=== PATIENT | female | born 1955 | race American Indian/Alaskan Native ===

== ENCOUNTER 2017-01-14 20:44 | Emergency (ER) | payer MEDICARE ==
[2017-01-14 22:01] LABS: Basophils % (Auto) 1.5 % (0.0-1.8); Eosinophils % (Auto) 5.3 % (0.0-4.3); Hematocrit 36.9 % (30.3-42.9); Hemoglobin 12.5 gm/dl (10.1-14.3); Mean Corpuscular HGB Conc 34 % (30-34); Mean Corpuscular Hemoglobin 28 pg (28-32); Mean Corpuscular Volume 82 fl (79-97); Platelet Count 284 K/mm3 (140-440); Red Cell Distribution Width 14.6 % (13.2-15.2); White Blood Count 8.4 K/mm3 (4.5-11.0)
[2017-01-14] MEDS ORDERED: ASPIRIN PO ONE (22:19)
[2017-01-14 22:20] LABS: Alanine Aminotransferase 14 units/L (7-56); Albumin 4.2 g/dL (3.9-5); Albumin/Globulin Ratio 1.4 %; Alkaline Phosphatase 97 units/L (35-129); Anion Gap 21 mmol/L; BUN/Creatinine Ratio 14; Bilirubin,Total < 0.20 mg/dL (0.1-1.2); Blood Urea Nitrogen 13 mg/dL (7-17); Calcium 9.1 mg/dL (8.4-10.2); Carbon Dioxide 24 mmol/L (22-30); Chloride 100.2 mmol/L (98-107); Glucose 135 mg/dL (65-100); Sodium 142 mmol/L (137-145); Total Protein 7.3 g/dL (6.3-8.2)
--- NOTE | 2017-01-14 22:26 | Emergency Department Report ---
ED Chest Pain HPI - General Chief Complaint: Chest Pain Stated Complaint: CHEST DISCOMFORT Time Seen by Provider: 01/14/17 21:59 Source: patient Mode of arrival: Stretcher Limitations: No Limitations - History of Present Illness Initial Comments: 61 yo female who comes in today due to chest pain. She states that it started today around 7:30 pm. She describes the pain as pressure-like, 4/10, midsternal , with no radiation. Patient does admit to losing her son in July 2016 to medical illness. She is currently pain free. MD Complaint: chest pain -: This evening Onset: other (while speaking with her son ) Pain Location: substernal Pain Radiation: none Severity: mild Severity scale (0 -10): 3 Consistency: now resolved Improves With: rest Worsens With: other (stress/anxiety) Context: other (loss of her son-July 2016) Treatments Prior to Arrival: none Aspirin use within the Past 7 Days: (0) No - Related Data On Oral Contraceptives: No Allergies Allergy/AdvReac Type Severity Reaction Status Date / Time codeine Allergy Unknown Verified 01/14/17 21:36 morphine Allergy Unknown Verified 01/14/17 21:35 Heart Score - HEART Score History: Slightly suspicious EKG: Normal Age: 45-65 Risk factors: 1-2 risk factors Troponin: < normal limit (Normal) HEART Score: 2 ED Review of Systems ROS: Stated complaint: CHEST DISCOMFORT Other details as noted in HPI Constitutional: denies: chills, fever Eyes: denies: eye pain, eye discharge, vision change ENT: denies: ear pain, throat pain Respiratory: denies: cough, shortness of breath, wheezing Cardiovascular: as per HPI Endocrine: no symptoms reported Gastrointestinal: denies: abdominal pain, nausea, diarrhea Genitourinary: denies: urgency, dysuria, discharge Musculoskeletal: denies: back pain, joint swelling, arthralgia Skin: denies: rash, lesions Neurological: denies: headache, weakness, paresthesias Psychiatric: denies: anxiety, depression Hematological/Lymphatic: denies: easy bleeding, easy bruising ED Past Medical Hx - Past Medical History Previous Medical History?: Yes Hx Hypertension: Yes Hx GERD: Yes Hx Asthma: Yes Additional medical history: BRONCHITIS, IBS - Social History Smoking Status: Current Every Day Smoker Substance Use Type: None ED Physical Exam - General Limitations: No Limitations General appearance: alert, in no apparent distress - Head Head exam: Present: atraumatic, normocephalic - Eye Eye exam: Present: normal appearance - ENT ENT exam: Present: mucous membranes moist - Neck Neck exam: Present: normal inspection - Respiratory Respiratory exam: Present: normal lung sounds bilaterally. Absent: respiratory distress - Cardiovascular Cardiovascular Exam: Present: regular rate, normal rhythm. Absent: systolic murmur, diastolic murmur, rubs, gallop - GI/Abdominal GI/Abdominal exam: Present: soft, normal bowel sounds - Extremities Exam Extremities exam: Present: normal inspection - Back Exam Back exam: Present: normal inspection - Neurological Exam Neurological exam: Present: alert, oriented X3 - Psychiatric Psychiatric exam: Present: normal affect, normal mood - Skin Skin exam: Present: warm, dry, intact, normal color. Absent: rash ED Course Vital Signs 01/14/17 01/14/17 01/14/17 17:26 17:30 17:46 Temperature Pulse Rate 89 88 67 Respiratory 15 17 16 Rate Blood Pressure 139/74 139/74 Blood Pressure [Right] O2 Sat by Pulse 100 96 100 Oximetry 01/14/17 01/14/17 01/14/17 18:00 18:16 18:30 Temperature Pulse Rate 82 77 64 Respiratory 10 L 16 20 Rate Blood Pressure 139/74 113/55 113/55 Blood Pressure [Right] O2 Sat by Pulse 97 100 100 Oximetry 01/14/17 01/14/17 01/14/17 18:46 19:00 19:16 Temperature Pulse Rate 65 63 63 Respiratory 17 18 17 Rate Blood Pressure 113/55 113/55 113/55 Blood Pressure [Right] O2 Sat by Pulse 100 100 100 Oximetry 01/14/17 01/14/17 01/14/17 19:30 20:50 21:00 Temperature Pulse Rate 63 86 93 H Respiratory 10 L 18 Rate Blood Pressure 113/55 113/55 144/84 Blood Pressure [Right] O2 Sat by Pulse 100 Oximetry 01/14/17 01/14/17 01/14/17 21:16 21:30 21:31 Temperature 98 F Pulse Rate 95 H 88 88 Respiratory 18 19 Rate Blood Pressure 144/84 113/55 Blood Pressure 144/84 [Right] O2 Sat by Pulse 98 Oximetry 01/14/17 01/14/17 01/14/17 21:46 22:00 22:16 Temperature Pulse Rate 91 H 91 H 93 H Respiratory 14 17 13 Rate Blood Pressure 144/84 144/84 144/84 Blood Pressure [Right] O2 Sat by Pulse Oximetry 01/14/17 01/14/17 01/14/17 22:30 22:46 23:00 Temperature Pulse Rate 92 H 86 92 H Respiratory 16 14 14 Rate Blood Pressure 144/84 144/84 144/84 Blood Pressure [Right] O2 Sat by Pulse Oximetry 01/14/17 01/14/17 01/14/17 23:16 23:30 23:46 Temperature Pulse Rate 86 81 88 Respiratory 14 13 15 Rate Blood Pressure 144/84 144/84 144/84 Blood Pressure [Right] O2 Sat by Pulse Oximetry 01/15/17 01/15/17 01/15/17 00:00 00:09 00:16 Temperature 98.2 F Pulse Rate 77 80 92 H Respiratory 10 L 14 21 Rate Blood Pressure 133/84 133/84 Blood Pressure 127/80 [Right] O2 Sat by Pulse 98 Oximetry 01/15/17 01/15/17 01/15/17 00:30 00:46 01:00 Temperature Pulse Rate 82 87 84 Respiratory 16 19 16 Rate Blood Pressure 133/84 133/84 133/84 Blood Pressure [Right] O2 Sat by Pulse 92 92 94 Oximetry 01/15/17 01/15/17 01/15/17 01:16 01:30 01:48 Temperature 98.2 F Pulse Rate 91 H 84 Respiratory 18 16 Rate Blood Pressure 133/84 133/84 Blood Pressure 131/78 [Right] O2 Sat by Pulse 89 Oximetry - Reevaluation(s) Reevaluation #1: 01/15/17 01:26 Patient states that she feels much better. Will check another set of enzymes and an ekg. Home if unremarkable. VON score - Von Score Age > 65: (0) No Aspirin use within the Past 7 Days: (0) No 3 or more CAD Risk Factors: (1) Yes 2 or more Angina events in past 24 hrs: (0) No Known CAD with more than 50% Stenosis: (0) No Elevated Cardiac Markers: (0) No ST Deviation Greater than 0.5mm: (0) No VON Score: 1 ED Medical Decision Making - Lab Data Result diagrams: 01/14/17 22:41 01/14/17 21:43 Critical care attestation.: If time is entered above; I have spent that time in minutes in the direct care of this critically ill patient, excluding procedure time. ED Disposition Clinical Impression: Chest pain, Anxiety, Stress Disposition: - TO HOME OR SELFCARE Is pt being admited?: No Does the pt Need Aspirin: No Condition: Stable Instructions: Chest Pain (ED) Additional Instructions: Please follow up with your provider on discharge. Return to the ED for worsening chest pain, shortness of breath, nausea, vomiting, diaphoresis, fever , or chills. Referrals: PRIMARY CARE, [Primary Care Provider] - 3-5 Days Time of Disposition: 01:57
[2017-01-14 22:51] LABS: Hematocrit 36.3 % (30.3-42.9); Hemoglobin 12.5 gm/dl (10.1-14.3); Mean Corpuscular HGB Conc 34 % (30-34); Mean Corpuscular Hemoglobin 28 pg (28-32); Mean Corpuscular Volume 82 fl (79-97); Platelet Count 264 K/mm3 (140-440); Red Blood Count 4.41 M/mm3 (3.65-5.03); Red Cell Distribution Width 14.4 % (13.2-15.2); White Blood Count 8.4 K/mm3 (4.5-11.0)
[2017-01-14] MEDS ORDERED: K-DUR PO ONE (23:04)
--- NOTE | 2017-01-14 23:29 | XRay Report ---
FINAL REPORT PROCEDURE: XR CHEST 1V AP TECHNIQUE: Chest radiograph anteroposterior view. CPT 83405 HISTORY: Chest pain. COMPARISON: No prior studies are available for comparison. FINDINGS: Heart: Normal. Mediastinum/Vessels: Aortic tortuosity. Mild central vascular congestion Lungs/Pleural space: Normal. Bony thorax: No acute osseous abnormality. Life support devices: None. IMPRESSION: Aortic tortuosity. Mild central vascular congestion without radiographic evidence of overt pulmonary edema.
[2017-01-15 02:53] VITALS: BP 122/83
== END 2017-01-15 02:51 | disposition home or self-care (01) ==
LOC: ED 20:44
DX: F41.9 Anxiety disorder, unspecified (principal); I10 Essential (primary) hypertension; K21.9 Gastro-esophageal reflux disease without esophagitis; F17.200 Nicotine dependence, unspecified, uncomplicated; Z88.6 Allergy status to analgesic agent
CPT/HCPCS: 36415; 71010; 80048; 80053; 84484; 85025; 85027; 93005; 93010; 99285

== ENCOUNTER 2018-11-12 13:48 | Inpatient (IN) | payer MEDICARE ==
--- NOTE | 2018-11-12 14:26 | Cat Scan Report ---
CT BRAIN: 11/12/2018 INDICATION / CLINICAL INFORMATION: neuro deficits <6hrs or sx present upon awakening. COMPARISON: None available. FINDINGS: BRAIN/INTRACRANIAL STRUCTURES: Unenhanced CT images of the brain were obtained. There is no definite evidence of acute abnormality. Ventricles and sulci are normal in size and shape. A prominent cavum septum lucidum is noted. There is some hypoattenuation present on these images in the central raghav. I suspect this is artifact ual based on beam hardening artifact arising from the temporal bones in this location. Underlying hyp odensity or ischemic change in the raghav cannot be excluded. There is no evidence of hemorrhage or mass. Dystrophic calcification is noted in the right side of th e quadrigeminal plate. There are no abnormal extra-axial fluid collections. EXTRACRANIAL STRUCTURES: Unremarkable. IMPRESSION: 1. No definite evidence of acute abnormality. 2. [place] hypodensity which may be artifactual. Findings to SHUN VALENTIN at [address] scans at this location are performed using dose reduction to ALARA by means of automated expos ure control. Signer Name: Silvestre Bridges MD Signed: 11/12/2018 2:22 PM Workstation Name: [id number]
[2018-11-12] MEDS ORDERED: ALTEPLASE 100 MG INJ KIT ONE (14:28)
--- NOTE | 2018-11-12 14:28 | Emergency Department Report ---
ED Neuro Deficit HPI - General Chief Complaint: Neuro Symptoms/Deficit Stated Complaint: FEELING ILL Time Seen by Provider: 11/12/18 14:26 Source: patient, EMS Mode of arrival: Stretcher Limitations: No Limitations - History of Present Illness Initial Comments: Patient is 63 years old female with history of hypertension and asthma. Patient brought to the emergency room via EMS for evaluation of sudden onset of slurred speech. Patient symptoms started exactly at 01:25 PM. Upon arrival to the ER patient has a minor left facial droop and left limb ataxia. Stroke protocol initiated immediately and stroke telemetry consulted. Patient's CT brain show a hypodense area in the raghav. Dr. Garth Dunaway examining the patient through video conference and indicated that patient is a TPA candidate. TPA given. -: Sudden Location: speech, left face, left arm, left leg Presenting Symptoms: Present: Weak/Paralyzed One Side, Facial Droop/Numbness, Unable to Speak Clearly History of same: No Place: home Associated Symptoms: denies other symptoms - Related Data Allergies/Adverse Reactions: Allergies Allergy/AdvReac Type Severity Reaction Status Date / Time codeine Allergy Unknown Verified 01/14/17 21:36 morphine Allergy Unknown Verified 01/14/17 21:35 ED Review of Systems ROS: Stated complaint: FEELING ILL Other details as noted in HPI Comment: All other systems reviewed and negative Constitutional: denies: chills, fever Respiratory: denies: orthopnea, shortness of breath Cardiovascular: denies: chest pain, palpitations Gastrointestinal: denies: abdominal pain, nausea, vomiting Musculoskeletal: denies: back pain Neurological: denies: headache, weakness, numbness, paresthesias, confusion, abnormal gait ED Past Medical Hx - Past Medical History Previous Medical History?: Yes Hx Hypertension: Yes Hx GERD: Yes Hx Asthma: Yes Additional medical history: BRONCHITIS, IBS - Social History Smoking Status: Current Every Day Smoker ED Neuro Physical Exam - General Limitations: No Limitations General appearance: alert, in no apparent distress Suspected Stroke: Yes - Head Head exam: Present: atraumatic, normocephalic, normal inspection - Eye Eye exam: Present: normal appearance, PERRL - ENT ENT exam: Present: normal exam, normal orophraynx, mucous membranes moist - Neck Neck exam: Present: normal inspection, full ROM. Absent: tenderness, menin gismus, lymphadenopathy, thyromegaly - Respiratory Respiratory exam: Present: normal lung sounds bilaterally - Cardiovascular Cardiovascular Exam: Present: regular rate, normal rhythm, normal heart sounds - GI/Abdominal GI/Abdominal exam: Present: soft, normal bowel sounds. Absent: distended, tenderness, guarding, rebound, rigid, organomegaly, mass, bruit, pulsatile mass, hernia - Extremities Exam Extremities exam: Present: normal inspection, full ROM, normal capillary refill. Absent: pedal edema, calf tenderness - Back Exam Back exam: Present: normal inspection, full ROM. Absent: CVA tenderness (R), CVA tenderness (L), muscle spasm, vertebral tenderness - Neurological Exam Neurological exam: Present: alert, oriented X3 - NIHSS Assessment Interval: Baseline 1a. Level of Consciousness: alert/keenly responsive 1b. LOC Questions: answers both correctly 1c. LOC Commands: performs tasks correctly 2. Best Gaze: normal 3. Visual: no visual loss 4. Facial Palsy: minor paralysis 5b. Motor Arm Right: no drift 5a. Motor Arm Left: no drift 6a. Motor Leg Left: no drift 6b. Motor Leg Right: no drift 7. Limb Ataxia: present 1 limb 8. Sensory: normal 9. Best Language: mild/moderate aphasia 10. Dysarthria: mild/moderate dysarthria 11. Extinction/Inattention: no abnormality Total Score: 4 Stroke Severity: Minor Stroke - Psychiatric Psychiatric exam: Present: normal mood - Skin Skin exam: Present: warm, intact, normal color ED Course Vital Signs 11/12/18 11/12/18 11/12/18 13:55 14:36 15:14 Temperature 98.7 F Pulse Rate 64 72 62 Pulse Rate [ Left Arm] Respiratory 16 Rate Respiratory Rate [Left Arm] Blood Pressure 144/86 158/86 162/88 Blood Pressure [Left Arm] O2 Sat by Pulse 98 Oximetry O2 Sat by Pulse Oximetry [Left Arm] 11/12/18 11/12/18 15:20 15:35 Temperature Pulse Rate Pulse Rate [ 78 86 Left Arm] Respiratory Rate Respiratory 21 18 Rate [Left Arm] Blood Pressure Blood Pressure 156/80 160/89 [Left Arm] O2 Sat by Pulse Oximetry O2 Sat by Pulse 99 100 Oximetry [Left Arm] - Lab Data Result diagrams: 11/12/18 14:11 11/12/18 14:11 Lab Results 11/12/18 11/12/18 11/12/18 Range/Units 14:11 14:11 14:11 WBC 6.0 (4.5-11.0) K/mm3 RBC 4.71 (3.65-5.03) M/mm3 Hgb 13.0 (10.1-14.3) gm/dl Hct 38.4 (30.3-42.9) % MCV 82 (79-97) fl MCH 28 (28-32) pg MCHC 34 (30-34) % RDW 14.5 (13.2-15.2) % Plt Count 277 (140-440) K/mm3 Lymph % (Auto) 31.7 (13.4-35.0) % [place] % (Auto) 6.6 (0.0-7.3) % Eos % (Auto) 2.7 (0.0-4.3) % Baso % (Auto) 1.2 (0.0-1.8) % Lymph # 1.9 (1.2-5.4) K/mm3 [place] # 0.4 (0.0-0.8) K/mm3 Eos # 0.2 (0.0-0.4) K/mm3 Baso # 0.1 (0.0-0.1) K/mm3 Seg Neutrophils % 57.8 (40.0-70.0) % Seg Neutrophils # 3.5 (1.8-7.7) K/mm3 PT 12.8 (12.2-14.9) Sec. INR 0.99 (0.87-1.13) APTT 27.6 (24.2-36.6) Sec. Thrombin Time (15.1-19.6) Sec. Sodium 141 (137-145) mmol/L Potassium 3.3 L (3.6-5.0) mmol/L Chloride 101.9 (98-107) mmol/L Carbon Dioxide 23 (22-30) mmol/L Anion Gap 19 mmol/L BUN 14 (7-17) mg/dL Creatinine 0.9 (0.7-1.2) mg/dL Estimated GFR > 60 ml/min BUN/Creatinine Ratio 16 % Glucose 94 (65-100) mg/dL POC Glucose (70-105) Calcium 9.3 (8.4-10.2) mg/dL Troponin T < 0.010 (0.00-0.029) ng/mL 11/12/18 11/12/18 Range/Units 14:11 14:39 WBC (4.5-11.0) K/mm3 RBC (3.65-5.03) M/mm3 Hgb (10.1-14.3) gm/dl Hct (30.3-42.9) % MCV (79-97) fl MCH (28-32) pg MCHC (30-34) % RDW (13.2-15.2) % Plt Count (140-440) K/mm3 Lymph % (Auto) (13.4-35.0) % [place] % (Auto) (0.0-7.3) % Eos % (Auto) (0.0-4.3) % Baso % (Auto) (0.0-1.8) % Lymph # (1.2-5.4) K/mm3 [place] # (0.0-0.8) K/mm3 Eos # (0.0-0.4) K/mm3 Baso # (0.0-0.1) K/mm3 Seg Neutrophils % (40.0-70.0) % Seg Neutrophils # (1.8-7.7) K/mm3 PT (12.2-14.9) Sec. INR (0.87-1.13) APTT (24.2-36.6) Sec. Thrombin Time 16.5 (15.1-19.6) Sec. Sodium (137-145) mmol/L Potassium (3.6-5.0) mmol/L Chloride (98-107) mmol/L Carbon Dioxide (22-30) mmol/L Anion Gap mmol/L BUN (7-17) mg/dL Creatinine (0.7-1.2) mg/dL Estimated GFR ml/min BUN/Creatinine Ratio % Glucose (65-100) mg/dL POC Glucose 88 (70-105) Calcium (8.4-10.2) mg/dL Troponin T (0.00-0.029) ng/mL - EKG Data -: EKG Interpreted by Me - Radiology Data Radiology results: report reviewed - Medical Decision Making Patient is 63 years old female with history of hypertension and asthma. Patient brought to the emergency room via EMS for evaluation of sudden onset of slurred speech. Patient symptoms started exactly at 01:25 PM. Upon arrival to the ER patient has a minor left facial droop and left limb ataxia. Stroke protocol initiated immediately and stroke telemetry consulted. Patient's CT brain show a hypodense area in the raghav. Dr. Garth Dunaway examining the patient through video conference and indicated that patient is a TPA candidate. TPA given. No complications noted. Scuffs the patient was Dr. Alvares, he had great admitted the patient to medical service. Critical Care Time: Yes Critical care time in (mins) excluding proc time.: 30 Critical care attestation.: If time is entered above; I have spent that time in minutes in the direct care of this critically ill patient, excluding procedure time. ED Disposition Clinical Impression: CVA (cerebral vascular accident) Disposition: 09 OP ADMIT IP TO THIS HOSP Is pt being admited?: Yes Condition: Stable
[2018-11-12 14:32] LABS: Basophils # (Auto) 0.1 K/mm3 (0.0-0.1); Basophils % (Auto) 1.2 % (0.0-1.8); Eosinophils # (Auto) 0.2 K/mm3 (0.0-0.4); Eosinophils % (Auto) 2.7 % (0.0-4.3); Hematocrit 38.4 % (30.3-42.9); Lymphocytes # (Auto) 1.9 K/mm3 (1.2-5.4); Lymphocytes % (Auto) 31.7 % (13.4-35.0); Mean Corpuscular HGB Conc 34 % (30-34); Mean Corpuscular Volume 82 fl (79-97); Monocytes # (Auto) 0.4 K/mm3 (0.0-0.8); Monocytes % (Auto) 6.6 % (0.0-7.3); Platelet Count 277 K/mm3 (140-440); Red Blood Count 4.71 M/mm3 (3.65-5.03); Red Cell Distribution Width 14.5 % (13.2-15.2)
[2018-11-12] MEDS ORDERED: ALTEPLASE 100 MG INJ KIT IV ONE ×2 (14:32)
[2018-11-12] MEDS ORDERED: SODIUM CHLORIDE 0.9% 50 ML IVPB IV ONE (14:32)
[2018-11-12 14:37] LABS: INR 0.99 (0.87-1.13)
[2018-11-12 14:38] LABS: Partial Thromboplastin Time 27.6 Sec. (24.2-36.6)
[2018-11-12 14:42] LABS: BUN/Creatinine Ratio 16; Blood Urea Nitrogen 14 mg/dL (7-17); Calcium 9.3 mg/dL (8.4-10.2); Hemolysis Index 1
--- NOTE | 2018-11-12 14:45 | Emergency Department Report ---
ED Neuro Deficit HPI - General Chief Complaint: Neuro Symptoms/Deficit Stated Complaint: FEELING ILL Time Seen by Provider: 11/12/18 14:26 Source: patient, EMS Mode of arrival: Stretcher Limitations: No Limitations - History of Present Illness Initial Comments: [facility] TeleNeurology Consult Services Impression: Pt was last normal close to ATAXIA on left side - 2 after walking. [place] stroke noted on CT no bleeding Stroke Alteplase is indicated. No absolute contraindications are present. The patient is ataxic to her left side, suspect posterior circulation stroke - ----*Presentation is suggestive of Large Vessel Occlusive Disease. Advanced imaging recommended. ---- Metrics: Door time: 1:48 pm [facility] contacted: 2:09 pm [facility] at bedside:2:15 pm Last known well (LKW): 1:30 pm NIHSS assessment time (start of exam): 2:15 pm Verbal tpa order: 2:20 pm Blood pressure prior to bolus: 140/66 Blood Glucose: 88 Needle time: 2:36 pm Verbal Consent to tPA: I have explained to the patient/family/guardian the natu re of the patients condition, the use of tPA fibrinolytic agent, and the benefits to be reasonably expected compared with alternative approaches. I have discussed the likelihood of major risks or complications of this procedure including (if applicable) but not limited to loss of limb function, brain damage, paralysis, hemorrhage, infection, complications from transfusion of blood components, drug reactions, blood clots and loss of life. I have also indicated that with any procedure there is always the possibility of an unexpected complication. I have explained the risks which include: 1. , Stroke or permanent neurologic injury (paralysis, coma, etc) 2. Worsening of stroke symptoms from swelling or bleeding in the brain 3. Bleeding in other parts of the body 4. Need for blood transfusions to replace blood or clotting factors 5. Allergic reaction to medications 6. Other unexpected complications All questions were answered and the patient/family/guardian express understanding of the treatment plan and consent to the procedure. Our recommendations are outlined below. We will be seeing the patient back in follow up as noted. Recommendations: IV tPA dose = 9 mg, 81 mg Routine post tPA monitoring including neuro checks and blood pressure control during/after treatment Monitor blood pressure Check blood pressure and NIHSS every 15 min for 2 h, then every 30 min for 6 h, and finally every hour for 16 h Manage Blood Pressure per post tPA protocol. Admission to ICU CT brain 24 hours post tPA NPO until swallowing screen performed and passed No antiplatelet agents or anticoagulants (including heparin for DVT prophylaxis) in first 24 hours No Bermudez catheter, nasogastric tube, arterial catheter or central venous catheter for 24 hr, unless absolutely necessary Telemetry Inpatient Neurology NIHSS score:2 = ataxia to the left side. 1A: Level of Consciousness - Requires repeated stimulation to arouse 0 1B: Ask Month and Age - 0 Questions Right 0 1C: 'Blink Eyes' & 'Squeeze Hands' - Performs 0 Tasks 0 2: Test Horizontal Extraocular Movements - Partial Gaze Palsy: Corrects with Oculocephalic Reflex 0 3: Test Visual Irvin - No Visual Loss 0 4: Test Facial Palsy - Normal symmetry 0 5A: Test Left Arm Motor Drift - Some Effort Against [place] 0 5B: Test Right Arm Motor Drift - Some Effort Against Gravity0 6A: Test Left Leg Motor Drift - Some Effort Against [place] 0 6B: Test Right Leg Motor Drift - Some Effort Against [place] 0 7: Test Limb Ataxia - Ataxia in 2 Limbs 2 8: Test Sensation - Complete Loss: Cannot Sense Being Touched At All 0 9: Test Language/Aphasia- Severe Aphasia: Fragmentary Expression, Inference Needed, Cannot Identify Materials 0 10: Test Dysarthria - Mute/Anarthric 0 11: Test Extinction/Inattention - Extinction to bilateral simultaneous stimulation 0 onsultation Stroke evaluation as per inpatient neurology recommendations Discussed with ED MD CC History of Present Illness Patient is a Diagnostics Exam NIHSS score: Medical Decision Making: - Extensive number of diagnosis or management options are considered above. - Extensive amount of complex data reviewed. - High risk of complication and/or morbidity or mortality are associated with differential diagnostic considerations above. - There may be Uncertain outcome and increased probability of prolonged functional impairment or high probability of severe prolonged functional impairment associated with some of these differential diagnosis. Medical Data Reviewed: 1.Data reviewed include clinical labs, radiology, Medical Tests; 2.Tests results discussed w/performing or interpreting physician; 3.Obtaining/reviewing old medical records; 4.Obtaining case history from another source; 5.Independent review of image, tracing or specimen. Patient was informed the Neurology Consult would happen via TeleHealth consult by way of interactive audio and video telecommunications and consented to receiving care in this manner. Location: speech, left face, left arm, left leg History of same: No Place: home - Related Data Allergies/Adverse Reactions: Allergies Allergy/AdvReac Type Severity Reaction Status Date / Time codeine Allergy Unknown Verified 01/14/17 21:36 morphine Allergy Unknown Verified 01/14/17 21:35 ED Review of Systems ROS: Stated complaint: FEELING ILL Other details as noted in HPI Constitutional: denies: chills, fever Respiratory: denies: orthopnea, shortness of breath Cardiovascular: denies: chest pain, palpitations Gastrointestinal: denies: abdominal pain, nausea, vomiting Musculoskeletal: denies: back pain Neurological: denies: headache, weakness, numbness, paresthesias, confusion, abnormal gait ED Past Medical Hx - Past Medical History Previous Medical History?: Yes Hx Hypertension: Yes Hx GERD: Yes Hx Asthma: Yes Additional medical history: BRONCHITIS, IBS - Social History Smoking Status: Current Every Day Smoker ED Neuro Physical Exam - General Limitations: No Limitations General appearance: alert, in no apparent distress ED Course Vital Signs 11/12/18 11/12/18 13:55 14:36 Temperature 98.7 F Pulse Rate 64 72 Respiratory 16 Rate Blood Pressure 144/86 158/86 O2 Sat by Pulse 98 Oximetry - Lab Data Result diagrams: 11/12/18 14:11 11/12/18 14:11 Lab Results 11/12/18 11/12/18 11/12/18 Range/Units 14:11 14:11 14:11 WBC 6.0 (4.5-11.0) K/mm3 RBC 4.71 (3.65-5.03) M/mm3 Hgb 13.0 (10.1-14.3) gm/dl Hct 38.4 (30.3-42.9) % MCV 82 (79-97) fl MCH 28 (28-32) pg MCHC 34 (30-34) % RDW 14.5 (13.2-15.2) % Plt Count 277 (140-440) K/mm3 Lymph % (Auto) 31.7 (13.4-35.0) % [place] % (Auto) 6.6 (0.0-7.3) % Eos % (Auto) 2.7 (0.0-4.3) % Baso % (Auto) 1.2 (0.0-1.8) % Lymph # 1.9 (1.2-5.4) K/mm3 [place] # 0.4 (0.0-0.8) K/mm3 Eos # 0.2 (0.0-0.4) K/mm3 Baso # 0.1 (0.0-0.1) K/mm3 Seg Neutrophils % 57.8 (40.0-70.0) % Seg Neutrophils # 3.5 (1.8-7.7) K/mm3 PT 12.8 (12.2-14.9) Sec. INR 0.99 (0.87-1.13) APTT 27.6 (24.2-36.6) Sec. Thrombin Time (15.1-19.6) Sec. Sodium 141 (137-145) mmol/L Potassium 3.3 L (3.6-5.0) mmol/L Chloride 101.9 (98-107) mmol/L Carbon Dioxide 23 (22-30) mmol/L Anion Gap 19 mmol/L BUN 14 (7-17) mg/dL Creatinine 0.9 (0.7-1.2) mg/dL Estimated GFR > 60 ml/min BUN/Creatinine Ratio 16 % Glucose 94 (65-100) mg/dL POC Glucose (70-105) Calcium 9.3 (8.4-10.2) mg/dL 11/12/18 11/12/18 Range/Units 14:11 14:39 WBC (4.5-11.0) K/mm3 RBC (3.65-5.03) M/mm3 Hgb (10.1-14.3) gm/dl Hct (30.3-42.9) % MCV (79-97) fl MCH (28-32) pg MCHC (30-34) % RDW (13.2-15.2) % Plt Count (140-440) K/mm3 Lymph % (Auto) (13.4-35.0) % [place] % (Auto) (0.0-7.3) % Eos % (Auto) (0.0-4.3) % Baso % (Auto) (0.0-1.8) % Lymph # (1.2-5.4) K/mm3 [place] # (0.0-0.8) K/mm3 Eos # (0.0-0.4) K/mm3 Baso # (0.0-0.1) K/mm3 Seg Neutrophils % (40.0-70.0) % Seg Neutrophils # (1.8-7.7) K/mm3 PT (12.2-14.9) Sec. INR (0.87-1.13) APTT (24.2-36.6) Sec. Thrombin Time 16.5 (15.1-19.6) Sec. Sodium (137-145) mmol/L Potassium (3.6-5.0) mmol/L Chloride (98-107) mmol/L Carbon Dioxide (22-30) mmol/L Anion Gap mmol/L BUN (7-17) mg/dL Creatinine (0.7-1.2) mg/dL Estimated GFR ml/min BUN/Creatinine Ratio % Glucose (65-100) mg/dL POC Glucose 88 (70-105) Calcium (8.4-10.2) mg/dL Critical care attestation.: If time is entered above; I have spent that time in minutes in the direct care of this critically ill patient, excluding procedure time. ED Disposition Condition: Stable
[2018-11-12] MEDS ORDERED: hydrALAZINE 20 MG/1 ML INJ IV ONE (15:06)
[2018-11-12] MEDS ORDERED: diphenhydrAMINE 50 MG/ML VIAL ONE (15:41)
[2018-11-12] MEDS ORDERED: diphenhydrAMINE 50 MG/ML VIAL IV ONE (15:42)
--- NOTE | 2018-11-12 16:14 | Cat Scan Report ---
NECK CT ANGIOGRAM 11/12/2018 HISTORY: Stroke FINDINGS: Contrast-enhanced CT angiographic images of the neck were obtained. In addition to the axia l images, sagittal and coronal reformatted images were obtained. In addition, 3 plane MIP reconstruct ions were produced. Patient motion artifact is present, which degrades the resolution of these images. There is no gross evidence of carotid location stenosis or abnormality. The motion artifact is particularly prominent o n the right side in the level of the proximal internal carotid artery. Vertebral artery contours are unremarkable. Visualized portions of the aortic arch are unremarkable. IMPRESSION: Motion artifact. Taking this into account, there is no gross evidence of carotid bifurcat ion stenosis or abnormality. NASCET like criteria were used in this evaluation. All CT scans at this location are performed using dose reduction to ALARA by means of automated expos ure control. Signer Name: Silvestre Bridges MD Signed: 11/12/2018 4:10 PM Workstation Name: [id number]
--- NOTE | 2018-11-12 16:17 | Cat Scan Report ---
HEAD CT ANGIOGRAM 11/12/2018 HISTORY: Speech disturbance FINDINGS: Contrast-enhanced CT angiographic images of the intracranial circulation were obtained. In addition to the axial images, sagittal and coronal reformatted images were obtained. In addition, 3 p james MIP reconstructions were produced. There is no evidence of acute abnormality. There is a normal appearance to the anterior and posterior circulation vessels at the level of the sk ull base and [place]. IMPRESSION: No significant abnormality. All CT scans at this location are performed using dose reduction to ALARA by means of automated expos ure control. Signer Name: Silvestre Bridges MD Signed: 11/12/2018 4:13 PM Workstation Name: [id number]
--- NOTE | 2018-11-12 16:26 | History and Physical Report ---
History of Present Illness Chief complaint: confused History of present illness: 63 YO Female with HTN, GERD, Asthma, IBS, Nicotine Dependence, Obesity presents to ED for evaluation. Pt is confused, lethargic and unable to provide detained history at time of exam. Pt history provided by , and family who are at bedside during exam and interview. As per family, the patient was in her usual state of health and experienced a sudden onset of confusion, Facial droop, and slurred speech as well as inability to move he left upper and lower extremities at 1325 hrs. EMS notified, and uopn arrival was found to have a neurologic deficit. A code stroke was called and the patient transported to [facility]. Pt seen and evaluated in ED an found to have symptoms consistent with CVA, and Encephalopathy. Teleneurology consulted and patient was treated with TPA. Pt subsequently admitted to ICU and terated IAW CVA protocol. Neurology consulted in ED. Advanced care planning conducted. Pt family acknowledges understanding and agreement with care plan. No prior admission for review. All listed medication reconciled at time of admission. Past History Past Medical History: GERD, hypertension, other (IBS, Obesity) Past Surgical History: No surgical history, Other (reviewed) Social history: , lives with family, smoking. denies: alcohol abuse, prescription drug abuse Family history: diabetes, hypertension Medications and Allergies Allergies Allergy/AdvReac Type Severity Reaction Status Date / Time codeine Allergy Unknown Verified 01/14/17 21:36 morphine Allergy Unknown Verified 01/14/17 21:35 Review of Systems ROS unobtainable: due to mental status Exam - Constitutional Vitals: Temp Pulse Resp BP Pulse Ox 98.7 F 86 18 160/89 100 11/12/18 13:55 11/12/18 15:35 11/12/18 15:35 11/12/18 15:35 11/12/18 15:35 General appearance: Present: mild distress, obese - EENT Eyes: Present: miosis ENT: hearing decreased - Neck Neck: Present: supple, normal ROM - Respiratory Respiratory effort: normal Respiratory: bilateral: CTA - Cardiovascular Heart Sounds: Present: S1 & S2. Absent: rub, click - Extremities Extremities: pulses symmetrical, No edema Peripheral Pulses: within normal limits - Abdominal General gastrointestinal: Present: soft, non-tender, non-distended, normal bowel sounds Female genitourinary: Present: normal - Integumentary Integumentary: Present: clear, warm, dry - Musculoskeletal Musculoskeletal: generalized weakness - Psychiatric Psychiatric: no appropriate mood/affect, no intact judgment & insight, no memory intact - Neurologic Neurologic: CNII-XII intact, no focal deficits, moves all extremities, no gait normal Results - Labs CBC & Chem 7: 11/12/18 14:11 11/12/18 14:11 Labs: Abnormal lab results 11/12/18 Range/Units 14:11 Potassium 3.3 L (3.6-5.0) mmol/L Assessment and Plan - Patient Problems (1) CVA (cerebral vascular accident) Current Visit: Yes Status: Acute Qualifiers: Precerebral and cerebral artery: middle cerebral artery Laterality of affected vessel: right Plan to address problem: Stroke Protocol: Admit to ICU, Teleneurology consulted, S/P TPA administration in ED, blood pressure control, Goal Systolic less than 180. IV hydralazine PRN, PT/OT/Speech Therapy, Neuro checks, lipid panel, statin therapy, further imaging as per neurology team. (2) Encephalopathy Current Visit: Yes Status: Acute Plan to address problem: CT head, neuro check, seizure precautions, treat CVA, (3) Nicotine dependence Current Visit: Yes Status: Acute Qualifiers: Substance use status: in withdrawal Plan to address problem: supportive care, smoking cessation counseling, +15min (4) Advance care planning Current Visit: Yes Status: Acute Plan to address problem: Discussed prognosis, code status, risk/benefits of TPA, need for further therapy PT/OT/ Speech therapy, Balanced diet, smoking cessation, risk factor reduction = +30minutes (5) Obesity (BMI 30-39.9) Current Visit: Yes Status: Acute Plan to address problem: Balanced diet, increased physical activity at discharge, (6) GERD (gastroesophageal reflux disease) Current Visit: Yes Status: Acute Qualifiers: Esophagitis presence: without esophagitis Qualified Code(s): K21.9 - Gastro-esophageal reflux disease without esophagitis Plan to address problem: PPI therapy. supportive care. (7) IBS (irritable bowel syndrome) Current Visit: Yes Status: Acute Qualifiers: Irritable bowel syndrome type: without diarrhea Qualified Code(s): K58.9 - Irritable bowel syndrome without diarrhea Plan to address problem: supportive care, continue medical management. (8) DVT prophylaxis Current Visit: Yes Status: Acute Plan to address problem: SCD to ble while in bed,
[2018-11-12] MEDS ORDERED: ONDANSETRON 4 MG/2 ML INJ IV PRN (16:27)
[2018-11-12] MEDS ORDERED: METOCLOPRAMIDE 10 MG TAB PO PRN (16:27)
[2018-11-12] MEDS ORDERED: MAGNESIUM HYDROXIDE (MOM) ORAL LIQD UDC PO PRN (16:27)
[2018-11-12] MEDS ORDERED: PROMETHAZINE 25 MG RECT SUPP PR PRN (16:27)
[2018-11-12] MEDS ORDERED: ACETAMINOPHEN 325 MG TAB PO PRN (16:27)
[2018-11-12] MEDS ORDERED: hydrALAZINE 20 MG/1 ML INJ IV PRN (16:31)
[2018-11-13 07:07] LABS: Chol/HDL Ratio 5.73 %
[2018-11-13] MEDS: ASPIRIN 325 MG TAB PO SCH (11:15)
--- NOTE | 2018-11-13 12:17 | Progress Note ---
Assessment and Plan (1) CVA (cerebral vascular accident) Current Visit: Yes Status: Acute Qualifiers: Precerebral and cerebral artery: middle cerebral artery Laterality of affected vessel: right Plan to address problem: Stroke Protocol: Admit to ICU, Teleneurology consulted, S/P TPA administration in ED, blood pressure control, Goal Systolic less than 180. IV hydralazine PRN, PT/OT/Speech Therapy, Neuro checks, lipid panel, statin therapy, further imaging as per neurology team Good improvement in power Compared to yesterday. PT/OT to continue (2) Encephalopathy Current Visit: Yes Status: Acute Plan to address problem: Improved Talking normally (3) Nicotine dependence Current Visit: Yes Status: Acute Qualifiers: Substance use status: in withdrawal Plan to address problem: supportive care, smoking cessation counseling, +15min (4) Advance care planning Current Visit: Yes Status: Acute Plan to address problem: Discussed prognosis, code status, risk/benefits of TPA, need for further therapy PT/OT/ Speech therapy, Balanced diet, smoking cessation, risk factor reduction = +30minutes (5) Obesity (BMI 30-39.9) Current Visit: Yes Status: Acute Plan to address problem: Balanced diet, increased physical activity at discharge, (6) GERD (gastroesophageal reflux disease) Current Visit: Yes Status: Acute Qualifiers: Esophagitis presence: without esophagitis Qualified Code(s): K21.9 - Gastro-esophageal reflux disease without esophagitis Plan to address problem: PPI therapy. supportive care. (7) IBS (irritable bowel syndrome) Current Visit: Yes Status: Acute Qualifiers: Irritable bowel syndrome type: without diarrhea Qualified Code(s): K58.9 - Irritable bowel syndrome without diarrhea Plan to address problem: supportive care, continue medical management. (8) DVT prophylaxis Current Visit: Yes Status: Acute Plan to address problem: SCD to ble while in bed, Subjective Date of service: 11/13/18 Principal diagnosis: Acute CVA with lt Hemiplegia Interval history: 63 YO Female with HTN, GERD, Asthma, IBS, Nicotine Dependence, Obesity presents to ED for evaluation. Pt is confused, lethargic and unable to provide detained history at time of exam. Pt history provided by , and family who are at bedside during exam and interview. As per family, the patient was in her usual state of health and experienced a sudden onset of confusion, Facial droop, and slurred speech as well as inability to move he left upper and lower extremities at 1325 hrs. EMS notified, and uopn arrival was found to have a neurologic deficit. A code stroke was called and the patient transported to [facility]. Pt seen and evaluated in ED an found to have symptoms consistent with CVA, and Encephalopathy. Teleneurology consulted and patient was treated with TPA. Pt subsequently admitted to ICU and terated IAW CVA protocol. Neurology consulted in ED. Advanced care planning conducted. Pt family acknowledges understanding and agreement with care plan. No prior admission for review. All listed medication reconciled at time of admission. Good improvement in power over ast 24 hours after TPA .Able to Lift LUE and LLE. Objective - Constitutional Vitals: Vital Signs - 12hr 11/13/18 11/13/18 11/13/18 00:30 00:45 01:00 Pulse Rate 75 Pulse Rate [ 69 Left Arm] Respiratory 19 18 17 Rate Respiratory 16 Rate [Left Arm] Blood Pressure 142/68 116/68 121/67 Blood Pressure 116/67 [Left Arm] Blood Pressure [Right] O2 Sat by Pulse 94 98 94 Oximetry O2 Sat by Pulse 100 Oximetry [Left Arm] 11/13/18 11/13/18 11/13/18 01:15 01:30 01:45 Pulse Rate 67 67 63 Pulse Rate [ Left Arm] Respiratory 11 L 14 16 Rate Respiratory Rate [Left Arm] Blood Pressure 117/79 121/73 130/74 Blood Pressure [Left Arm] Blood Pressure [Right] O2 Sat by Pulse 100 98 100 Oximetry O2 Sat by Pulse Oximetry [Left Arm] 11/13/18 11/13/18 11/13/18 02:00 02:15 02:30 Pulse Rate 60 70 60 Pulse Rate [ 65 Left Arm] Respiratory 16 18 14 Rate Respiratory 14 Rate [Left Arm] Blood Pressure 122/65 126/69 98/52 Blood Pressure 102/60 [Left Arm] Blood Pressure [Right] O2 Sat by Pulse 99 100 100 Oximetry O2 Sat by Pulse 99 Oximetry [Left Arm] 11/13/18 11/13/18 11/13/18 02:45 03:00 03:15 Pulse Rate 62 61 70 Pulse Rate [ 71 Left Arm] Respiratory 15 16 11 L Rate Respiratory 20 Rate [Left Arm] Blood Pressure 109/52 112/55 100/48 Blood Pressure 119/70 [Left Arm] Blood Pressure [Right] O2 Sat by Pulse 100 100 100 Oximetry O2 Sat by Pulse 100 Oximetry [Left Arm] 11/13/18 11/13/18 11/13/18 03:30 03:45 04:00 Pulse Rate 64 59 L 62 Pulse Rate [ 62 Left Arm] Respiratory 16 15 16 Rate Respiratory 18 Rate [Left Arm] Blood Pressure 106/67 95/50 95/48 Blood Pressure 92/48 [Left Arm] Blood Pressure [Right] O2 Sat by Pulse 100 100 99 Oximetry O2 Sat by Pulse 100 Oximetry [Left Arm] 11/13/18 11/13/18 11/13/18 04:15 04:30 04:45 Pulse Rate 64 61 59 L Pulse Rate [ 62 Left Arm] Respiratory 16 15 14 Rate Respiratory 18 Rate [Left Arm] Blood Pressure 90/47 94/52 96/49 Blood Pressure 90/48 [Left Arm] Blood Pressure [Right] O2 Sat by Pulse 100 100 100 Oximetry O2 Sat by Pulse 100 Oximetry [Left Arm] 11/13/18 11/13/18 11/13/18 05:00 05:15 05:30 Pulse Rate 56 L 60 57 L Pulse Rate [ 58 L Left Arm] Respiratory 14 15 12 Rate Respiratory 14 Rate [Left Arm] Blood Pressure 113/58 95/57 97/47 Blood Pressure 106/58 [Left Arm] Blood Pressure [Right] O2 Sat by Pulse 98 100 100 Oximetry O2 Sat by Pulse 100 Oximetry [Left Arm] 11/13/18 11/13/18 11/13/18 05:45 06:00 07:00 Pulse Rate 79 60 Pulse Rate [ 68 68 Left Arm] Respiratory 15 14 Rate Respiratory 19 16 Rate [Left Arm] Blood Pressure 86/48 102/47 Blood Pressure 102/47 105/63 [Left Arm] Blood Pressure [Right] O2 Sat by Pulse 100 100 Oximetry O2 Sat by Pulse 100 100 Oximetry [Left Arm] 11/13/18 11/13/18 07:14 07:22 Pulse Rate 59 L Pulse Rate [ Left Arm] Respiratory 16 18 Rate Respiratory Rate [Left Arm] Blood Pressure Blood Pressure [Left Arm] Blood Pressure 105/63 [Right] O2 Sat by Pulse 98 Oximetry O2 Sat by Pulse Oximetry [Left Arm] General appearance: Present: no acute distress, well-nourished - EENT Eyes: PERRL, EOM intact ENT: hearing intact, clear oral mucosa Ears: bilateral: normal - Neck Neck: supple, normal ROM - Respiratory Respiratory effort: normal Respiratory: bilateral: CTA - Breasts Breasts: normal - Cardiovascular Heart rate: 78 Rhythm: regular Heart Sounds: Present: S1 & S2. Absent: gallop, rub Extremities: no ischemia, pulses intact, No edema, normal color, Full ROM - Gastrointestinal General gastrointestinal: Present: soft, non-tender, non-distended, normal bowel sounds - Genitourinary Female genitourinary: normal - Integumentary Integumentary: clear, warm, dry - Musculoskeletal Musculoskeletal: left sided weakness (power 3/5 both upper and lower extremities) - Neurologic Neurologic: moves all extremities - Psychiatric Psychiatric: memory intact, appropriate mood/affect, intact judgment & insight - Labs CBC & Chem 7: 11/12/18 14:11 11/12/18 14:11 Labs: Abnormal lab results 11/12/18 11/13/18 Range/Units 14:11 05:41 Potassium 3.3 L (3.6-5.0) mmol/L Triglycerides 157 H (2-149) mg/dL LDL Cholesterol Direct 148 H (50-130) mg/dL HDL Cholesterol 34 L (40-59) mg/dL
--- NOTE | 2018-11-13 14:42 | Consultation ---
History of Present Illness Consult date: 11/13/18 Reason for consult: asthma, COPD History of present illness: PULMONARY AND CRITICAL CARE CONSULTATION. DR. COLBY THANK YOU FOR ASKING US TO PARTICIPATE IN THE CARE OF THIS PATIENT 63 YO Female with HTN, GERD, Asthma, IBS, Nicotine Dependence, Obesity presents to ED for evaluation. Pt is confused, lethargic and unable to provide detained history at time of exam. Pt history provided by , and family who are at bedside during exam and interview. As per family, the patient was in her usual state of health and experienced a sudden onset of confusion, Facial droop, and slurred speech as well as inability to move he left upper and lower extremities at 1325 hrs. EMS notified, and uopn arrival was found to have a neurologic deficit. A code stroke was called and the patient transported to [facility]. Pt seen and evaluated in ED an found to have symptoms consistent with CVA, and Encep halopathy. Teleneurology consulted and patient was treated with TPA. Pt subsequently admitted to ICU and terated IAW CVA protocol. Neurology consulted in ED. Advanced care planning conducted. Pt family acknowledges understanding and agreement with care plan. Patient has history of hypertension GE reflux and irritable bowel syndrome. Patient is smoker. Says smokes 2 cigaretts a day. Has been smoking for many years. Counselled to stop smoking.; Denies alcohol or drug abuse. Patient used to work with [employer]. Patient and has 4 children. Patient said one son with cancer. Patient allergic to Morphine and codeine.; Patient says she has asthma last 4 years.Patient with history of smoking and chronic bronchitis Likely COPD. Past History Past Medical History: COPD, GERD, hypertension, other (IBS, Obesity) Past Surgical History: No surgical history, Other (reviewed) Social history: , lives with family, smoking. denies: alcohol abuse, prescription drug abuse Family history: diabetes, hypertension Medications and Allergies Allergies Allergy/AdvReac Type Severity Reaction Status Date / Time codeine Allergy Unknown Verified 01/14/17 21:36 morphine Allergy Unknown Verified 01/14/17 21:35 Home Medications Medication Instructions Recorded Confirmed Last Taken Type Aspirin [Aspirin BABY CHEW TAB] 81 mg PO QDAY 11/13/18 11/13/18 1 Day Ago History ~11/12/18 Famotidine [Pepcid] 40 mg PO QHS 11/13/18 11/13/18 1 Day Ago History ~11/12/18 Metoprolol [Lopressor TAB] 50 mg PO QDAY 11/13/18 11/13/18 1 Day Ago History ~11/12/18 hydroCHLOROthiazide [HCTZ] 25 mg PO QDAY 11/13/18 11/13/18 1 Day Ago History ~11/12/18 Active Meds: Active Medications Acetaminophen (Tylenol) 650 mg PO Q4H PRN PRN Reason: Pain, Mild (1-3) Aspirin (Aspirin) 325 mg PO QDAY [facility] Last Admin: 11/13/18 11:15 Dose: 325 mg Documented by: Atorvastatin Calcium (Lipitor) 40 mg PO QHS [facility] Last Admin: 11/12/18 23:05 Dose: 40 mg Documented by: Bisacodyl (Dulcolax) 10 mg [place] QDAY PRN PRN Reason: Constipation Hydralazine HCl (Apresoline) 20 mg IV Q4H PRN PRN Reason: Hypertension Magnesium Hydroxide (Milk Of Magnesia) 30 ml PO Q4H PRN PRN Reason: Constipation Metoclopramide HCl (Reglan) 10 mg PO Q6H PRN PRN Reason: Nausea And Vomiting Ondansetron HCl (Zofran) 4 mg IV Q8H PRN PRN Reason: Nausea And Vomiting Promethazine HCl (Phenergan) 25 mg DC Q6H PRN PRN Reason: Nausea And Vomiting Sodium Chloride (Sodium Chloride Flush Syringe 10 Ml) 10 ml IV PRN PRN PRN Reason: LINE FLUSH Review of Systems All systems: negative Physical Examination Vital signs: Vital Signs Temp Pulse Resp BP Pulse Ox 98.7 F 64 16 144/86 98 11/12/18 13:55 11/12/18 13:55 11/12/18 13:55 11/12/18 13:55 11/12/18 13:55 General appearance: no acute distress, alert Eyes: non-icteric ENT: oropharynx moist Neck: supple, no JVD Ascultation: Bilateral: diminished breath sounds, other (Prolonged expiratory phase.) Cardiovascular: regular rate and rhythm Gastrointestinal: normoactive bowel sounds, soft, non-tender Integumentary: normal Extremities: no cyanosis, no edema Musculoskeletal: no deformities Gait: other (Resting in bed.) normal mental status, pupils equal and round mood appropriate Results - Laboratory Findings CBC and BMP: 11/12/18 14:11 11/12/18 14:11 PT/INR, D-dimer PT 12.8 Sec. (12.2-14.9) 11/12/18 14:11 INR 0.99 (0.87-1.13) 11/12/18 14:11 Abnormal lab findings: Abnormal Labs 11/12/18 11/13/18 14:11 05:41 Potassium 3.3 L Triglycerides 157 H LDL Cholesterol Direct 148 H HDL Cholesterol 34 L Assessment and Plan 63 YO Female with HTN, GERD, Asthma, IBS, Nicotine Dependence, Obesity presents to ED for evaluation. Pt is confused, lethargic and unable to provide detained history at time of exam. Pt history provided by , and family who are at bedside during exam and interview. As per family, the patient was in her usual state of health and experienced a sudden onset of confusion, Facial droop, and slurred speech as well as inability to move he left upper and lower extremities at 1325 hrs. EMS notified, and uopn arrival was found to have a neurologic deficit. A code stroke was called and the patient transported to [facility]. Pt seen and evaluated in ED an found to have symptoms consistent with CVA, and Encephalopathy. Teleneurology consulted and patient was treated with TPA. Pt subsequently admitted to ICU and terated IAW CVA protocol. Neurology consulted in ED. Advanced care planning conducted. Pt family acknowledges understanding and agreement with care plan. Patient has history of hypertension GE reflux and irritable bowel syndrome. Patient is smoker. Says smokes 2 cigaretts a day. Has been smoking for many y ears. Counselled to stop smoking.; Denies alcohol or drug abuse. Patient used to work with [employer]. Patient and has 4 children. Patient said one son with cancer. Patient allergic to Morphine and codeine.; Patient says she has asthma last 4 years.Patient with history of smoking and chronic bronchitis Likely COPD. - Patient Problems (1) CVA (cerebral vascular accident) Current Visit: Yes Status: Acute Qualifiers: Precerebral and cerebral artery: middle cerebral artery Laterality of affected vessel: right Plan to address problem: Management as per neurology. (2) Encephalopathy Current Visit: Yes Status: Acute Plan to address problem: Management as per neurology. (3) GERD (gastroesophageal reflux disease) Current Visit: Yes Status: Acute Qualifiers: Esophagitis presence: without esophagitis Qualified Code(s): K21.9 - Gastro-esophageal reflux disease without esophagitis Plan to address problem: Patient is on reglan. Recommend protonix.; (4) IBS (irritable bowel syndrome) Current Visit: Yes Status: Acute Qualifiers: Irritable bowel syndrome type: without diarrhea Qualified Code(s): K58.9 - Irritable bowel syndrome without diarrhea Plan to address problem: Management as per primary care and neurology.; (5) Nicotine dependence Current Visit: Yes Status: Acute Qualifiers: Substance use status: in withdrawal Plan to address problem: Counselled to stop smoking.; (6) Obesity (BMI 30-39.9) Current Visit: Yes Status: Acute Plan to address problem: Consult Gift Officer for weigh reduction diet. (7) COPD (chronic obstructive pulmonary disease) Current Visit: Yes Status: Acute Plan to address problem: O2 2 litres via nasal canula. Albuterol/atrovent aerosol treatments q 6 hours. ABGs on room air. Chest xray PA and Lateral.
--- NOTE | 2018-11-13 17:23 | Consultation ---
History of Present Illness Consult date: 11/13/18 History of present illness: patient seen and I did note the calcification in the dorsal midbrain on the right exam is normal and result of tets are opending further evaluation helpfum from sound of the spells this was TIA versus strome full note dictated Past History Past Medical History: COPD, GERD, hypertension, other (IBS, Obesity) Past Surgical History: No surgical history, Other (reviewed) Social history: , lives with family, smoking. denies: alcohol abuse, pr escription drug abuse Family history: diabetes, hypertension Medications and Allergies Allergies Allergy/AdvReac Type Severity Reaction Status Date / Time codeine Allergy Unknown Verified 01/14/17 21:36 morphine Allergy Unknown Verified 01/14/17 21:35 Home Medications Medication Instructions Recorded Confirmed Last Taken Type Aspirin [Aspirin BABY CHEW TAB] 81 mg PO QDAY 11/13/18 11/13/18 1 Day Ago History ~11/12/18 Famotidine [Pepcid] 40 mg PO QHS 11/13/18 11/13/18 1 Day Ago History ~11/12/18 Metoprolol [Lopressor TAB] 50 mg PO QDAY 11/13/18 11/13/18 1 Day Ago History ~11/12/18 hydroCHLOROthiazide [HCTZ] 25 mg PO QDAY 11/13/18 11/13/18 1 Day Ago History ~11/12/18 Active Meds: Active Medications Acetaminophen (Tylenol) 650 mg PO Q4H PRN PRN Reason: Pain, Mild (1-3) Aspirin (Aspirin) 325 mg PO QDAY [facility] Last Admin: 11/13/18 11:15 Dose: 325 mg Documented by: Atorvastatin Calcium (Lipitor) 40 mg PO QHS [facility] Last Admin: 11/12/18 23:05 Dose: 40 mg Documented by: Bisacodyl (Dulcolax) 10 mg [place] QDAY PRN PRN Reason: Constipation Hydralazine HCl (Apresoline) 20 mg IV Q4H PRN PRN Reason: Hypertension Magnesium Hydroxide (Milk Of Magnesia) 30 ml PO Q4H PRN PRN Reason: Constipation Metoclopramide HCl (Reglan) 10 mg PO Q6H PRN PRN Reason: Nausea And Vomiting Ondansetron HCl (Zofran) 4 mg IV Q8H PRN PRN Reason: Nausea And Vomiting Promethazine HCl (Phenergan) 25 mg [place] Q6H PRN PRN Reason: Nausea And Vomiting Sodium Chloride (Sodium Chloride Flush Syringe 10 Ml) 10 ml IV PRN PRN PRN Reason: LINE FLUSH Physical Examination - Vital Signs Vital Signs: Vital Signs Temp Pulse Resp BP Pulse Ox 98.7 F 64 16 144/86 98 11/12/18 13:55 11/12/18 13:55 11/12/18 13:55 11/12/18 13:55 11/12/18 13:55 Results - Laboratory Findings CBC and BMP: 11/12/18 14:11 11/12/18 14:11 Abnormal Lab Findings: Abnormal Labs 11/12/18 11/13/18 14:11 05:41 Potassium 3.3 L Triglycerides 157 H LDL Cholesterol Direct 148 H HDL Cholesterol 34 L
--- NOTE | 2018-11-14 08:10 | Vascular Lab Report ---
BILATERAL CAROTID DOPPLER ULTRASOUND INDICATION : stroke TECHNIQUE: Grayscale and color Doppler imaging performed through the neck. COMPARISON: CTA head and neck performed 11/12/2018 FINDINGS: Right: There is no significant atherosclerotic disease. Peak systolic velocity in the CCA is 96 cm/ s with end-diastolic velocity of 20 cm/s. Peak systolic velocity in the proximal ICA is 78 cm/s with end-diastolic velocity of 23 cm/s. ICA to CCA ratio is less than 2. There is antegrade flow in the E CA and the vertebral artery. Left: There is no significant atherosclerotic disease. Peak systolic velocity in the CCA is 106 cm/s with end-diastolic velocity of 30 cm/s. Peak systolic velocity in the proximal ICA is 96 cm/s with en d-diastolic velocity of 37 cm/s. ICA to CCA ratio is less than 2. There is antegrade flow in the ECA and the vertebral artery. IMPRESSION: No hemodynamically significant stenosis by NASCET criteria. Signer Name: Wolf Cai Jr, MD Signed: 11/14/2018 8:06 AM Workstation Name: [id number]
[2018-11-14 08:22] VITALS: BP 116/68
--- NOTE | 2018-11-14 08:35 | XRay Report ---
CHEST 2 VIEWS INDICATION / CLINICAL INFORMATION: COPD. COMPARISON: 01/14/2017 FINDINGS: SUPPORT DEVICES: None. HEART / MEDIASTINUM: No significant abnormality. LUNGS / PLEURA: No significant pulmonary or pleural abnormality. No pneumothorax. ADDITIONAL FINDINGS: No significant additional findings. IMPRESSION: 1. No acute findings. Signer Name: Corey Steven MD Signed: 11/14/2018 8:31 AM Workstation Name: [id number]
[2018-11-14] MEDS: ASPIRIN 325 MG TAB PO SCH (09:51)
--- NOTE | 2018-11-14 13:25 | Discharge Summary ---
Providers - Providers Date of Admission: 11/12/18 16:27 Attending physician: THEODORE JARAMILLO MD 11/12/18 Consult to Physician [CONS] Routine Comment: Consulting Provider: JUDITH AU Physician Instructions: Reason For Exam: cva 11/12/18 16:27 Occupational Therapy Evaluate and Treat [CONS] Routine Comment: Reason For Exam: Neuro deficits Physical Therapy Evaluation and Treat [CONS] Routine Comment: Reason For Exam: Neuro deficits 11/12/18 20:31 Consult to Physician [CONS] Routine Comment: Consulting Provider: NILO CHILDERS Physician Instructions: Reason For Exam: CVA S/P TPA [facility] Reason for admission: TIA Condition: Stable Hospital course: 63 YO Female with HTN, GERD, Asthma, IBS, Nicotine Dependence, Obesity presents to ED for evaluation. Pt is confused, lethargic and unable to provide detained history at time of exam. Pt history provided by , and family who are at bedside during exam and interview. As per family, the patient was in her usual state of health and experienced a sudden onset of confusion, Facial droop, and slurred speech as well as inability to move he left upper and lower extremities at 1325 hrs. EMS notified, and uopn arrival was found to have a neurologic deficit. A code stroke was called and the patient transported to [facility]. Pt seen and evaluated in ED an found to have symptoms consistent with CVA, and Encephalopathy. Teleneurology consulted and patient was treated with TPA. Pt subsequently admitted to ICU and terated IAW CVA protocol. Neurology consulted in ED. Advanced care planning conducted. Pt family acknowledges understanding and agreement with care plan. No prior admission for review. All listed medication reconciled at time of admission. Good improvement in power over ast 24 hours after TPA .Able to Lift LUE and LLE. Per Neurology: patient seen and I did note the calcification in the dorsal midbrain on the right exam is normal and result of tets are opending further evaluation helpfum from sound of the spells this was TIA versus strome (1) CVA (cerebral vascular accident) Current Visit: Yes Status: Acute Qualifiers: Precerebral and cerebral artery: middle cerebral artery Laterality of affected vessel: right Plan to address problem: Stroke Protocol: Admit to ICU, Teleneurology consulted, S/P TPA administration i n ED, Continues to improve Increase asa to full dose (2) Encephalopathy Current Visit: Yes Status: Acute Plan to address problem: Improved Talking normally (3) Nicotine dependence Current Visit: Yes Status: Acute Qualifiers: Substance use status: in withdrawal Plan to address problem: supportive care, smoking cessation counseling, +15min pt verbalized understanding (4) Advance care planning Current Visit: Yes Status: Acute Plan to address problem: Discussed prognosis, code status, risk/benefits of TPA, need for further therapy PT/OT/ Speech therapy, Balanced diet, smoking cessation, risk factor reduction = +30minutes (5) Obesity (BMI 30-39.9) Current Visit: Yes Status: Acute Plan to address problem: Balanced diet, increased physical activity at discharge, (6) GERD (gastroesophageal reflux disease) Current Visit: Yes Status: Acute Qualifiers: Esophagitis presence: without esophagitis Qualified Code(s): K21.9 - Gastro-esophageal reflux disease without esophagitis Plan to address problem: PPI therapy. supportive care. (7) IBS (irritable bowel syndrome) Current Visit: Yes Status: Acute Qualifiers: Irritable bowel syndrome type: without diarrhea Qualified Code(s): K58.9 - Irritable bowel syndrome without diarrhea Plan to address problem: supportive care, continue medical management. Disposition: DC-01 TO HOME OR SELFCARE Time spent for discharge: 35 MINS Core Measure Documentation - Palliative Care Palliative Care/ Comfort Measures: Not Applicable - Core Measures Any of the following diagnoses?: stroke - Stroke Discharge Requirements Statin for LDL = or >70 mg/dl on DC: Yes Anticoag for atrial fib/atrial flutter: Not Applicable Antithrombotic for ischemic stroke: Yes Exam - Constitutional Vitals: Temp Pulse Resp BP Pulse Ox 98.3 F 59 L 18 116/68 98 11/14/18 08:11 11/14/18 08:11 11/14/18 08:11 11/14/18 08:11 11/14/18 08:11 General appearance: Present: no acute distress, well-nourished - EENT Eyes: Present: PERRL, EOM intact ENT: hearing intact, clear oral mucosa - Neck Neck: Present: supple, normal ROM - Respiratory Respiratory effort: normal Respiratory: bilateral: CTA - Cardiovascular Rhythm: regular Heart Sounds: Present: S1 & S2. Absent: systolic murmur - Extremities Extremities: no ischemia, pulses intact, pulses symmetrical, No edema, normal temperature, normal color, Full ROM Peripheral Pulses: within normal limits - Abdominal General gastrointestinal: Present: soft, non-tender, non-distended, normal bowel sounds - Integumentary Integumentary: Present: clear, warm, dry - Musculoskeletal Musculoskeletal: strength equal bilaterally - Psychiatric Psychiatric: appropriate mood/affect, intact judgment & insight, memory intact, cooperative - Neurologic Neurologic: CNII-XII intact, moves all extremities - Allied Health Allied health notes reviewed: nursing Plan Activity: advance as tolerated, fall precautions Diet: low fat Special Instructions: record daily BP diary, smoking cessation Follow up with: RADHA SNOWDEN MD [Primary Care Provider] - 3-5 Days JUDITH AU MD [Staff Physician] - 7 Days Prescriptions: AtorvaSTATin [Lipitor] 40 mg PO QHS #30 tablet Aspirin 325 mg PO QDAY #30 tablet
--- NOTE | 2018-11-14 13:31 | Progress Note ---
Assessment and Plan Patient alert, awake. No complaint of chest pain, shortness of breath or cough.Patient is on room air. O2 saturation 98%. Patient has history of smoking. Counselled to stop smoking. Recommend PFTs as out patient.Chest xray reported no acute findings. Told the patient can come as out patient to my office for pulmonary problems. - Patient Problems (1) CVA (cerebral vascular accident) Status: Acute Qualifiers: Precerebral and cerebral artery: middle cerebral artery Laterality of affected vessel: right Plan to address problem: Management as per neurology. (2) Encephalopathy Status: Acute Plan to address problem: Management as per neurology. (3) GERD (gastroesophageal reflux disease) Status: Acute Qualifiers: Esophagitis presence: without esophagitis Qualified Code(s): K21.9 - Gastro-esophageal reflux disease without esophagitis Plan to address problem: Patient is on reglan. Recommend protonix.; (4) IBS (irritable bowel syndrome) Status: Acute Qualifiers: Irritable bowel syndrome type: without diarrhea Qualified Code(s): K58.9 - Irritable bowel syndrome without diarrhea Plan to address problem: Management as per primary care and neurology.; (5) Nicotine dependence Status: Acute Qualifiers: Substance use status: in withdrawal Plan to address problem: Counselled to stop smoking. PFTs as out patient. (6) Obesity (BMI 30-39.9) Status: Acute Plan to address problem: Consult Flat Breakdown Processor for weigh reduction diet. (7) COPD (chronic obstructive pulmonary disease) Status: Acute Plan to address problem: O2 2 litres via nasal canula. Albuterol/atrovent aerosol treatments q 6 hours. Subjective Date of service: 11/14/18 Principal diagnosis: Acute CVA with lt Hemiplegia Interval history: Patient alert, awake. No complaint of chest pain, shortness of breath or cough.Patient is on room air. O2 saturation 98%. Patient has history of smoking. Counselled to stop smoking. Recommend PFTs as out patient.Chest xray reported no acute findings. Told the patient can come as out patient to my office for pulmonary problems. Objective Vital Signs - 12hr 11/14/18 11/14/18 11/14/18 01:58 03:04 07:47 Temperature 98.7 F Pulse Rate 77 Respiratory 18 18 Rate Blood Pressure 100/61 O2 Sat by Pulse 95 95 Oximetry 11/14/18 08:11 Temperature 98.3 F Pulse Rate 59 L Respiratory 18 Rate Blood Pressure 116/68 O2 Sat by Pulse 98 Oximetry Constitutional: no acute distress, alert Eyes: non-icteric ENT: oropharynx moist Neck: supple, no JVD Ascultation: Bilateral: diminished breath sounds, other (Prolonged expiratory phase.) Cardiovascular: regular rate and rhythm Gastrointestinal: normoactive bowel sounds, soft, non-tender Integumentary: normal Extremities: no cyanosis, no edema Neurologic: normal mental status, pupils equal and round Psychiatric: mood appropriate CBC and BMP: 11/12/18 14:11 11/12/18 14:11 ABG, PT/INR, D-dimer: PT/INR, D-dimer PT 12.8 Sec. (12.2-14.9) 11/12/18 14:11 INR 0.99 (0.87-1.13) 11/12/18 14:11 Abnormal lab findings: Abnormal Labs 11/12/18 11/13/18 14:11 05:41 Potassium 3.3 L Triglycerides 157 H LDL Cholesterol Direct 148 H HDL Cholesterol 34 L Chest x-ray: report reviewed (No acute findings.), image reviewed
--- NOTE | 2018-11-14 13:50 | Consultation ---
HISTORY OF PRESENT ILLNESS: This is a 63-year-old black female who presents to [facility] with a rather prolonged episode of right-sided weakness, speech difficulty. She has a prior medical history of having hypertension and has seen her senior bioinformatics specialist recently, does have a history of having some skipped beats in her heart. She is on antihypertensive agents. She has no prior history of any stroke or TIA in the past. I have reviewed her CT scan of the head, it is quite unremarkable except for a very interesting area in the dorsal quadrigeminal plate, which is almost indicative of outside where I would expect the pineal gland to be located. This is in the right quadrigeminal plate both medial and lateral plate area of the dorsal midbrain. This extends into the pontine area and this clearly quite unusual in appearance. From reviewing the CAT scan report, it does appear that the patient was noted by the radiologist, but did not further comment on this. It seems quite unlikely that this would have been the cause of this episode because what she had happened was right-sided weakness and speech difficulty. At present, this is completely resolved and I am awaiting further testing. PHYSICAL EXAMINATION: Shows she is fully alert, names her grandchildren well, knows where she is, has no focal weakness. Cranial nerves are intact. Blood pressure 117/80, pulse rate 86. No seizure activity is present. Motor and sensory examination are unremarkable, otherwise. She has a supple neck. No seizure activity and she is fully oriented and appropriate. PLAN: I plan to get an MRI scan of the patient, plan to review over echocardiogram, carotid artery ultrasound, interesting history of having the skipped beats on her cardiac testing, was interesting perhaps she is having PAT. It is hard to be sure if that is true, then anticoagulation may be necessary because a precursor to atrial fibrillation. At this point, this is all pending further evaluation. JOB# [id number] ZARA/ASHLEY
== END 2018-11-14 15:15 | disposition home or self-care (01) | DRG 62 ==
LOC: ED 13:48 → CC1 16:27 → 4A 11-13 13:52
PROVIDERS: ADMIT Internal Medicine; ATTEND Internal Medicine
DX: I63.9 Cerebral infarction, unspecified (principal); G93.40 Encephalopathy, unspecified; F17.213 Nicotine dependence, cigarettes, with withdrawal; K21.9 Gastro-esophageal reflux disease without esophagitis; K58.9 Irritable bowel syndrome, unspecified; E66.9 Obesity, unspecified; J44.9 Chronic obstructive pulmonary disease, unspecified; R29.810 Facial weakness; R47.81 Slurred speech; R29.704 NIHSS score 4; I10 Essential (primary) hypertension; Z71.6 Tobacco abuse counseling; Z68.31 Body mass index [BMI] 31.0-31.9, adult; Z71.3 Dietary counseling and surveillance; Z82.49 Family history of ischemic heart disease and other diseases of the circulatory system; Z83.3 Family history of diabetes mellitus; Z88.5 Allergy status to narcotic agent; Z79.82 Long term (current) use of aspirin; Z79.899 Other long term (current) drug therapy
CPT/HCPCS: 36415; 70450; 70496; 70498; 71046; 80048; 80061; 82962; 84484; 85025; 85610; 85670; 85730; 93005; 93010; 93306; 93880; 96374; 96375; 99406; G0378; A9270-GY; J0360; J1200; J2997; Q9967